=== PATIENT | male | born 1960 | race Caucasian/White ===

== ENCOUNTER → 2016-05-26 | Outpatient (CLI) | payer MEDICARE, OTHER ==
[2016-05-26 19:51] LABS: Hemoglobin A1C 5.2 % (4.2-6.1)
== END | disposition home or self-care (01) ==
LOC: LABWHC1 16:31
PROVIDERS: ATTEND Psychiatry & Neurology Psychiatry
DX: T50.905A Adverse effect of unspecified drugs, medicaments and biological substances, initial encounter (principal)
CPT/HCPCS: 36415; 83036

== ENCOUNTER → 2016-11-30 | Outpatient (CLI) | payer MEDICARE, OTHER ==
[2016-11-30 13:02] LABS: Bilirubin, Delta 0.3 mg/dL (0.0-0.2); Total Bilirubin 0.6 mg/dL (0.2-1.3); Total Protein 7.1 g/dL (6.3-8.2)
[2016-11-30 18:45] LABS: Hemoglobin A1C 5.5 % (4.2-6.1)
== END ==
LOC: LABWHC1 12:14
PROVIDERS: ATTEND Psychiatry & Neurology Psychiatry
DX: T50.905A Adverse effect of unspecified drugs, medicaments and biological substances, initial encounter (principal)
CPT/HCPCS: 36415; 80076; 83036

== ENCOUNTER → 2017-05-01 | Outpatient (CLI) | payer MEDICARE, OTHER ==
[2017-05-01 16:06] LABS: Basophils # (A) 0.1 k/uL (0-0.2); Basophils % (A) 1 %; Eosinophils # (A) 0.1 k/uL (0-0.7); Eosinophils % (A) 2 %; HCT 53.7 % (39.0-53.0); HGB 17.4 gm/dL (13.0-17.5); Lymphocytes # (A) 1.5 k/uL (1.0-4.8); Lymphocytes % (A) 20 %; MCH 29.5 pg (25.0-35.0); MCHC 32.3 g/dL (31.0-37.0); MCV 91.3 fL (80.0-100.0); Mean Platelet Volume 6.8; Monocytes # (A) 0.3 k/uL (0-1.0); Monocytes % (A) 3 %; Neutrophils # (A) 5.7 k/uL (1.3-7.7); Neutrophils % (A) 74 %; Platelet Count 259 k/uL (150-450); RBC 5.88 m/uL (4.30-5.90); RDW 13.8 % (11.5-15.5); WBC 7.7 k/uL (3.8-10.6)
[2017-05-01 16:07] LABS: ALT 67 U/L (21-72); AST 30 U/L (17-59); Albumin 4.5 g/dL (3.5-5.0); Alkaline Phosphatase 123 U/L (38-126); Anion Gap 11 mmol/L; Blood Urea Nitrogen 18 mg/dL (9-20); Calcium 9.4 mg/dL (8.4-10.2); Carbon Dioxide 28 mmol/L (22-30); Chloride 103 mmol/L (98-107); Cholesterol 172 mg/dL (<200); Glucose 92 mg/dL (74-99); HDL Cholesterol 38 mg/dL (40-60); LDL Cholesterol,Calculated 114 mg/dL (0-99); Potassium 4.7 mmol/L (3.5-5.1); Sodium 142 mmol/L (137-145); Total Bilirubin 0.6 mg/dL (0.2-1.3); Total Protein 7.6 g/dL (6.3-8.2); Triglycerides 102 mg/dL (<150)
== END | disposition home or self-care (01) ==
LOC: LABWHC1 15:15
PROVIDERS: ATTEND Nurse Practitioner
DX: F33.41 Major depressive disorder, recurrent, in partial remission (principal); Z79.899 Other long term (current) drug therapy
CPT/HCPCS: 36415; 80053; 80061; 85025

== ENCOUNTER → 2017-10-13 | Outpatient (CLI) | payer MEDICARE, OTHER ==
[2017-10-13 12:31] LABS: Basophils % (A) 1 %; Eosinophils # (A) 0.1 k/uL (0-0.7); Eosinophils % (A) 2 %; HCT 53.9 % (39.0-53.0); HGB 18.1 gm/dL (13.0-17.5); Lymphocytes # (A) 1.7 k/uL (1.0-4.8); Lymphocytes % (A) 25 %; MCH 30.6 pg (25.0-35.0); MCHC 33.5 g/dL (31.0-37.0); MCV 91.3 fL (80.0-100.0); Mean Platelet Volume 6.2; Monocytes # (A) 0.3 k/uL (0-1.0); Monocytes % (A) 4 %; Neutrophils # (A) 4.6 k/uL (1.3-7.7); Neutrophils % (A) 67 %; Platelet Count 208 k/uL (150-450); RBC 5.91 m/uL (4.30-5.90); RDW 13.7 % (11.5-15.5); WBC 6.8 k/uL (3.8-10.6)
[2017-10-13 12:45] LABS: Albumin 4.4 g/dL (3.5-5.0); Calcium 9.5 mg/dL (8.4-10.2); Potassium 4.4 mmol/L (3.5-5.1); Total Bilirubin 0.7 mg/dL (0.2-1.3); Total Protein 7.1 g/dL (6.3-8.2)
[2017-10-13 18:23] LABS: Hemoglobin A1C 5.3 % (4.0-6.0)
== END | disposition home or self-care (01) ==
LOC: LABWHC1 11:50
PROVIDERS: ATTEND Nurse Practitioner
DX: F33.41 Major depressive disorder, recurrent, in partial remission (principal); Z79.899 Other long term (current) drug therapy
CPT/HCPCS: 36415; 80053; 80061; 83036; 85025

== ENCOUNTER 2018-11-07 15:36 | Emergency (ER) | payer MEDICARE, OTHER ==
[2018-11-07] MEDS ORDERED: KETOROLAC 30 MG/ML 1 ML VIAL IVP STA (16:38)
[2018-11-07] MEDS ORDERED: SODIUM CHLORIDE 0.9% 1,000 ML IV STA ×2 (16:38→20:49)
--- NOTE | 2018-11-07 17:05 | ED ---
General Adult HPI - General Chief complaint: Abdominal Pain Stated complaint: abd pain Time Seen by Provider: 11/07/18 16:21 Source: patient, RN notes reviewed Mode of arrival: ambulatory Limitations: no limitations - History of Present Illness Initial comments: 58-year-old male with intellectual disability presents to the emergency department for a chief complaint of abdominal pain. Patient presents with guardian and history is obtained both from guardian and patient. Patient has had diffuse abdominal pain for 3 days. Guardian states patient began vomiting this morning. Denies any chest pain or shortness of breath. Denies diarrhea, states bowel movements have been normal. Denies vomiting blood or any blood in stool. Denies any past medical history.Patient has no other complaints at this time including shortness of breath, chest pain, headache, or visual changes. - Related Data Home Medications Medication Instructions Recorded Confirmed ARIPiprazole [Abilify] 10 mg PO DAILY 11/07/18 11/07/18 Sertraline HCl [Zoloft] 100 mg PO DAILY 11/07/18 11/07/18 buPROPion XL [Wellbutrin Xl] 300 mg PO DAILY 11/07/18 11/07/18 Allergies Allergy/AdvReac Type Severity Reaction Status Date / Time No Known Allergies Allergy Verified 11/07/18 19:48 Review of Systems ROS Statement: Those systems with pertinent positive or pertinent negative responses have been documented in the HPI. ROS Other: All systems not noted in ROS Statement are negative. Past Medical History Additional Past Medical History / Comment(s): "mentally handicapped" per guardian History of Any Multi-Drug Resistant Organisms: None Reported Past Surgical History: No Surgical Hx Reported Past Psychological History: No Psychological Hx Reported Smoking Status: Never smoker Past Alcohol Use History: None Reported Past Drug Use History: None Reported General Exam Limitations: no limitations General appearance: alert, in no apparent distress Head exam: Present: atraumatic, normocephalic, normal inspection Eye exam: Present: normal appearance, PERRL, EOMI. Absent: scleral icterus, conjunctival injection, periorbital swelling ENT exam: Present: normal exam, mucous membranes moist Neck exam: Present: normal inspection, full ROM. Absent: tenderness, meningismus, lymphadenopathy Respiratory exam: Present: normal lung sounds bilaterally. Absent: respiratory distress, wheezes, rales, rhonchi, stridor Cardiovascular Exam: Present: regular rate, normal rhythm, normal heart sounds. Absent: systolic murmur, diastolic murmur, rubs, gallop, clicks GI/Abdominal exam: Present: soft, tenderness (Tenderness of the abdomen. Mild guarding in the lower abdomen.), normal bowel sounds. Absent: distended, guarding, rebound, rigid Neurological exam: Present: alert, oriented X3, CN II-XII intact Psychiatric exam: Present: normal affect, normal mood Course Vital Signs 11/07/18 11/07/18 11/07/18 16:11 17:51 19:00 Temperature 97.6 F Pulse Rate 111 H 97 107 H Respiratory 20 20 16 Rate Blood Pressure 127/87 124/104 134/90 O2 Sat by Pulse 94 L 94 L 93 L Oximetry Medical Decision Making - Medical Decision Making Boni is a 58-year-old male with intellectual disability presenting to the emergency department for abdominal pain. Patient has had pain for 3 days and today began vomiting. Denies diarrhea, states bowel movements have been normal. Denies hematochezia or melena. Patient initially tachycardic at 111, given a liter of fluids. This did improve somewhat to 97. Blood pressure is stable. While patient is complaining of pain more so in the upper abdomen, exam does reveal a generalized tenderness with mild voluntary guarding. CBC does show a white count of 17.3 which is elevated above his baseline. CMP is unremarkable. Urine does not show any significant evidence of infection. CT abdomen and pelvis was obtained which shows significant edema and wall thickening of the long segment of the proximal jejunum with small bowel mesenteric edema and adenopathy. More likely related to inflammatory process. However portal vein is dilated to 2.2 cm and there is evidence of portal vein thrombosis. Dr Emery spoke with Dr Castillo who recommends transfer given evidence of portal vein thrombosis. Patient was started on heparin and Zosyn. Discussed this with Dr. Rosario who accepts transfer. - Lab Data Result diagrams: 11/07/18 17:12 11/07/18 17:12 Lab Results 11/07/18 11/07/18 11/07/18 Range/Units 17:12 17:12 17:12 WBC 17.3 H (3.8-10.6) k/uL RBC 5.65 (4.30-5.90) m/uL Hgb 16.4 (13.0-17.5) gm/dL Hct 48.6 (39.0-53.0) % MCV 85.9 (80.0-100.0) fL MCH 29.1 (25.0-35.0) pg MCHC 33.8 (31.0-37.0) g/dL RDW 13.0 (11.5-15.5) % Plt Count 217 (150-450) k/uL Neutrophils % 92 % Lymphocytes % 3 % Monocytes % 4 % Eosinophils % 0 % Basophils % 0 % Neutrophils # 15.9 H (1.3-7.7) k/uL Lymphocytes # 0.6 L (1.0-4.8) k/uL Monocytes # 0.7 (0-1.0) k/uL Eosinophils # 0.0 (0-0.7) k/uL Basophils # 0.0 (0-0.2) k/uL Sodium 143 (137-145) mmol/L Potassium 4.7 (3.5-5.1) mmol/L Chloride 109 H (98-107) mmol/L Carbon Dioxide 22 (22-30) mmol/L Anion Gap 12 mmol/L BUN 31 H (9-20) mg/dL Creatinine 1.24 (0.66-1.25) mg/dL Est GFR (CKD-EPI)AfAm 74 (>60 ml/min/1.73 sqM) Est GFR (CKD-EPI)NonAf 64 (>60 ml/min/1.73 sqM) Glucose 176 H (74-99) mg/dL Plasma Lactic Acid Josef 1.8 (0.7-2.0) mmol/L Calcium 9.6 (8.4-10.2) mg/dL Total Bilirubin 1.1 (0.2-1.3) mg/dL AST 35 (17-59) U/L ALT 34 (21-72) U/L Alkaline Phosphatase 143 H (38-126) U/L Troponin I (0.000-0.034) ng/mL Total Protein 7.3 (6.3-8.2) g/dL Albumin 4.4 (3.5-5.0) g/dL Amylase 45 (30-110) U/L Lipase 77 (23-300) U/L Urine Color Urine Appearance (Clear) Urine pH (5.0-8.0) Ur Specific [place] (1.001-1.035) Urine Protein (Negative) Urine Glucose (UA) (Negative) Urine Ketones (Negative) Urine Blood (Negative) Urine Nitrite (Negative) Urine Bilirubin (Negative) Urine Urobilinogen (<2.0) mg/dL Ur Leukocyte Esterase (Negative) Urine RBC (0-5) /hpf Urine WBC (0-5) /hpf Urine Mucus (None) /hpf 11/07/18 11/07/18 Range/Units 17:12 17:12 WBC (3.8-10.6) k/uL RBC (4.30-5.90) m/uL Hgb (13.0-17.5) gm/dL Hct (39.0-53.0) % MCV (80.0-100.0) fL MCH (25.0-35.0) pg MCHC (31.0-37.0) g/dL RDW (11.5-15.5) % Plt Count (150-450) k/uL Neutrophils % % Lymphocytes % % Monocytes % % Eosinophils % % Basophils % % Neutrophils # (1.3-7.7) k/uL Lymphocytes # (1.0-4.8) k/uL Monocytes # (0-1.0) k/uL Eosinophils # (0-0.7) k/uL Basophils # (0-0.2) k/uL Sodium (137-145) mmol/L Potassium (3.5-5.1) mmol/L Chloride (98-107) mmol/L Carbon Dioxide (22-30) mmol/L Anion Gap mmol/L BUN (9-20) mg/dL Creatinine (0.66-1.25) mg/dL Est GFR (CKD-EPI)AfAm (>60 ml/min/1.73 sqM) Est GFR (CKD-EPI)NonAf (>60 ml/min/1.73 sqM) Glucose (74-99) mg/dL Plasma Lactic Acid Josef (0.7-2.0) mmol/L Calcium (8.4-10.2) mg/dL Total Bilirubin (0.2-1.3) mg/dL AST (17-59) U/L ALT (21-72) U/L Alkaline Phosphatase (38-126) U/L Troponin I <0.012 (0.000-0.034) ng/mL Total Protein (6.3-8.2) g/dL Albumin (3.5-5.0) g/dL Amylase (30-110) U/L Lipase (23-300) U/L Urine Color Yellow Urine Appearance Clear (Clear) Urine pH 5.5 (5.0-8.0) Ur Specific [place] 1.032 (1.001-1.035) Urine Protein 1+ H (Negative) Urine Glucose (UA) Negative (Negative) Urine Ketones Trace H (Negative) Urine Blood Small H (Negative) Urine Nitrite Negative (Negative) Urine Bilirubin Negative (Negative) Urine Urobilinogen <2.0 (<2.0) mg/dL Ur Leukocyte Esterase Negative (Negative) Urine RBC <1 (0-5) /hpf Urine WBC 1 (0-5) /hpf Urine Mucus Occasional H (None) /hpf Disposition Clinical Impression: Leukocytosis, Portal vein thrombosis, Pancreatic atrophy, Jejunal inflammation Disposition: OTHER INSTITUTION NOT DEFINED Condition: Good Is patient prescribed a controlled substance at d/c from ED?: No Referrals: Allison Anne MD [Primary Care Provider] - 1-2 days Time of Disposition: 20:49 - Out of Hospital Transfer - Req. Specs Out of Hospital Transfer - Requested Specifics: Other Emergency Center ([facility])
[2018-11-07 17:26] LABS: Basophils % (A) 0 %; Eosinophils % (A) 0 %; HCT 48.6 % (39.0-53.0); HGB 16.4 gm/dL (13.0-17.5); Lymphocytes # (A) 0.6 k/uL (1.0-4.8); Lymphocytes % (A) 3 %; MCH 29.1 pg (25.0-35.0); MCHC 33.8 g/dL (31.0-37.0); MCV 85.9 fL (80.0-100.0); Mean Platelet Volume 6.6; Monocytes # (A) 0.7 k/uL (0-1.0); Monocytes % (A) 4 %; Neutrophils # (A) 15.9 k/uL (1.3-7.7); Neutrophils % (A) 92 %; Platelet Count 217 k/uL (150-450); RBC 5.65 m/uL (4.30-5.90); WBC 17.3 k/uL (3.8-10.6)
[2018-11-07 17:27] LABS: Appearance,Urine Clear (Clear); Bilirubin,Urine Negative (Negative); Blood,Urine Small (Negative); Color,Urine Yellow; Glucose,Urine (UA) Negative (Negative); Ketones,Urine Trace (Negative); Leukocyte Esterase,Urine Negative (Negative); Mucus,Urine Occasional /hpf; Nitrite,Urine Negative (Negative); PH, Urine 5.5 (5.0-8.0); Protein,Urine 1+ (Negative); RBC,Urine <1 /hpf (0-5); Specific Gravity,Urine 1.032 (1.001-1.035); Urobilinogen,Urine <2.0 mg/dL (<2.0); WBC,Urine 1 /hpf (0-5)
[2018-11-07 17:42] LABS: Albumin 4.4 g/dL (3.5-5.0); Calcium 9.6 mg/dL (8.4-10.2); Potassium 4.7 mmol/L (3.5-5.1); Total Bilirubin 1.1 mg/dL (0.2-1.3); Total Protein 7.3 g/dL (6.3-8.2)
--- NOTE | 2018-11-07 18:45 | CT ---
EXAMINATION TYPE: CT abdomen pelvis w con DATE OF EXAM: 11/07/2018 COMPARISON: None HISTORY: Abdominal pain and vomiting x3 days CT DLP: 1264.9 mGycm Automated exposure control for dose reduction was used. TECHNIQUE: Helical acquisition of images was performed from the lung bases through the pelvis. CONTRAST: Performed without Oral Contrast and with IV Contrast, patient injected with 100 mL of Isovue 300. FINDINGS: There is subsegmental atelectasis at the posterior lung bases. Spleen is intact. There is low density within the portal vein suggestive of thrombus. Portal vein is dilated and measures 2.[address] appears normal. Bile ducts are not dilated. There is hiatal hernia that contains fat. There is barger creatic atrophy involving the tail of the pancreas with some dilation of the pancreatic duct. Pancrea tic head appears intact. There is significant wall thickening of the proximal jejunum. There is mesenteric edema involving the proximal small bowel. There is no adrenal mass. Kidneys show satisfactory contrast opacification. There is no hydronephrosi s. Bladder distends smoothly. There is small amount of fluid in the pelvis. There is no inguinal ted ia. There is no evidence of thickened appendix. There is some facet arthropathy at L5-S1. There is L5 -S1 disc space narrowing. There is no focal bony destructive process. IMPRESSION: THERE IS SIGNIFICANT EDEMA AND WALL THICKENING OF LONG SEGMENT OF PROXIMAL JEJUNUM WITH SMALL BOWEL M ESENTERIC EDEMA AND ADENOPATHY. THIS IS MORE LIKELY RELATED TO INFLAMMATORY PROCESS. THERE IS EVIDENC E OF PORTAL VEIN THROMBOSIS. DILATED PORTAL VEIN. CHANGES IN THE PANCREAS CONSISTENT WITH ATROPHY AND CHRONIC PANCREATITIS.
[2018-11-07] MEDS ORDERED: MORPHINE SULFATE 4 MG/ML SYRINGE IVP STA (19:10)
[2018-11-07 19:23] VITALS: BP 134/90
[2018-11-07] MEDS ORDERED: HEPARIN SODIUM,PORCINE 5,000 UNIT/ML 1 ML VIAL IV PRN (20:16)
[2018-11-07] MEDS ORDERED: HEPARIN SODIUM,PORCINE 10,000 UNIT/ML 1 ML VIAL IV ONE (20:16)
[2018-11-07] MEDS ORDERED: PIPERACILLIN-TAZOBACTAM 3.375 GM in SODIUM CHLORIDE 0.9% 100 ML IVPB STA (20:17)
[2018-11-07] MEDS ORDERED: HEPARIN SOD,PORK IN 0.45% NACL 25,000 UNIT in 0.45% NACL 1 250ML.BAG IV SCH (20:30)
[2018-11-07 21:57] VITALS: RESP 18
[2018-11-07 22:11] VITALS: PULSE 112; TEMP 100
== END 2018-11-07 22:05 | disposition other institution (70) ==
LOC: EC 15:36 → EEVIPCON 15:36 → EC 22:05
DX: I81 Portal vein thrombosis (principal); K86.89 Other specified diseases of pancreas; K52.9 Noninfective gastroenteritis and colitis, unspecified; D72.829 Elevated white blood cell count, unspecified; R00.0 Tachycardia, unspecified; R59.0 Localized enlarged lymph nodes; Z79.899 Other long term (current) drug therapy
CPT/HCPCS: 36415; 93005; 80053; 82150; 83605; 83690; 84484; 85025; 81001; 74177; 99285; 96365; 96368; 96375 ×2; 96376; 96361; J2543; J2270; J1644 ×2; J1885; Q9967

== ENCOUNTER → 2018-12-27 | Outpatient (CLI) | payer MEDICARE, OTHER ==
--- NOTE | 2018-12-30 06:44 | PE ---
EXAMINATION TYPE: PET CT fusion skull to thigh DATE OF EXAM: 12/27/2018 COMPARISON: CT abdomen and pelvis November 07, 2018 HISTORY: Pancreatic cancer initial staging study diagnosed on biopsy December 12 TECHNIQUE: Following the intravenous administration of 13.68 mCi of F-18 FDG, whole body images are performed from the skull base to the midthigh. Images are reviewed on the computer in the coronal, a xial, and sagittal planes. Reconstructed rotating images are created on independent workstation and reviewed on the computer. A noncontrast CT is performed in conjunction with the PET scan. SCAN: Initial Scan FINDINGS: SKULL BASE AND NECK: No areas of suspicious hypermetabolic uptake. CHEST, MEDIASTINUM, AND HILAR REGION: No areas of suspicious hypermetabolic uptake ABDOMEN AND PELVIS: Minimal hypermetabolic uptake in the mid to distal body at area of bulkiness posi tive for neoplasm axial image 147 causing distal ductal dilatation. SUV is 2.31. Focus of hypermetabolic uptake right upper pelvis axial image [address] correlate presumed along course of right ureter. No additional areas of suspicious hypermetabolic uptake. OSSEOUS STRUCTURES: No areas of suspicious hypermetabolic uptake. OTHER CT: Slightly elevated left hemidiaphragm. Redemonstration of splenomegaly measuring 15.5 cm long axis axial image 141. Prominent splenule 70 sp lenic hilum redemonstrated. Scattered subcentimeter lymph nodes throughout the mesentery redemonstrat ed. Soft tissue nodularity in the anterior abdominal wall is present near axial image 200 perhaps pro duct of subcutaneous injections as there are additional smaller areas of nodularity and fat stranding bilaterally noted. Slightly enlarged prostate gland consistent with BPH. Moderate to large sized fat -containing left inguinal hernia. Multilevel spurring in the spine. Facet arthropathy lower lumbar levels. IMPRESSION: No convincing PET CT evidence for metastatic malignancy. Patient suspected surgical devon date.
== END | disposition home or self-care (01) ==
LOC: RADPETMAIN 17:04
PROVIDERS: ATTEND Internal Medicine Hematology & Oncology
DX: C25.1 Malignant neoplasm of body of pancreas (principal); C25.3 Malignant neoplasm of pancreatic duct; K86.81 Exocrine pancreatic insufficiency
CPT/HCPCS: 78815; A9552

== ENCOUNTER 2019-03-14 07:59 | Day surgery (SDC) | payer MEDICARE, OTHER ==
[2019-03-11 10:30] VITALS: BMI 23.0
[~2019-03-14 07:59] MED LIST: DEXAMETHASONE SOD PHOSPHATE 10 MG/ML 1 ML VIAL IV ONE; HEPARIN SODIUM,PORCINE 5,000 UNIT/ML 1 ML VIAL SQ ONE; HYDROmorphone 0.5 MG/0.5 ML SYRINGE IVP PRN; LACTATED RINGERS 1,000 ML IV SCH; LIDOCAINE 1% 20 ML VIAL (10MG/ML) FOR IV START INTRADERMA PRN; ONDANSETRON 4 MG/2 ML VIAL IVP ONE; Pre Op ABX Message 1 EACH MISC MISCELLANE ONE; fentaNYL (PF) 50 MCG/ML 2 ML AMP IV PRN
--- NOTE | 2019-03-14 08:45 | P.GSHP ---
History of Present Illness H&P Date: 03/14/19 Chief Complaint: Pancreatic cancer This is a 58-year-old male who was previously diagnosed hepatic cancer. Patient resents today for Port-A-Cath insertion Past Medical History Past Medical History: Cancer Additional Past Medical History / Comment(s): pancreatic cancer, "blood clot around liver area". balance issues History of Any Multi-Drug Resistant Organisms: None Reported Past Surgical History: No Surgical Hx Reported Additional Past Surgical History / Comment(s): surgery for pancreatic cancer Past Anesthesia/Blood Transfusion Reactions: No Reported Reaction Past Psychological History: No Psychological Hx Reported Additional Psychological History / Comment(s): "mentally handicapped" per guardian Smoking Status: Never smoker Past Alcohol Use History: None Reported Past Drug Use History: None Reported - Past Family History Mother Family Medical History: Cancer Additional Family Medical History / Comment(s): pancreatic cancer Brother(s) Family Medical History: Diabetes Mellitus Medications and Allergies Home Medications Medication Instructions Recorded Confirmed Type ARIPiprazole [Abilify] 5 mg PO DAILY 11/07/18 03/11/19 History Sertraline HCl [Zoloft] 100 mg PO DAILY 11/07/18 03/11/19 History buPROPion XL [Wellbutrin Xl] 300 mg PO DAILY 11/07/18 03/11/19 History Aspirin 325 mg PO DAILY 03/11/19 03/11/19 History HYDROcodone/APAP [[place] Elixir 15 ml PO Q4HR PRN 03/11/19 03/11/19 History 7.5-325Mg/15Ml] Lovenox (Unknown Dose) 1 dose INJ BID 03/11/19 03/11/19 History Allergies Allergy/AdvReac Type Severity Reaction Status Date / Time No Known Allergies Allergy Verified 03/11/19 10:14 Surgical - Exam Vital Signs Temp Pulse Resp BP Pulse Ox 97.8 F 97 20 131/86 98 03/14/19 08:27 03/14/19 08:27 03/14/19 08:27 03/14/19 08:27 03/14/19 08:27 - General well developed, well nourished, no distress - Eyes PERRL - ENT normal pinna - Neck no masses - Respiratory normal expansion - Cardiovascular Rhythm: regular - Abdomen Abdomen: soft, non tender Assessment and Plan Assessment: History of pancreas cancer. We'll perform Port-A-Cath insertion.
--- NOTE | 2019-03-14 08:54 | P.OP ---
Date of Procedure: 03/14/19 Preoperative Diagnosis: History of colon cancer Postoperative Diagnosis: No evidence of recurrent colon cancer Procedure(s) Performed: Colonoscopy Anesthesia: MAC Surgeon: Jake May Pathology: none sent Condition: stable Disposition: PACU Description of Procedure: The patient's placed on the endoscopy table in the lateral position. She received IV sedation. Digital rectal exam performed which revealed no abnormalities. The patient's rectal stump was quite short. The staple line could be felt with the examining finger. This point the colonoscope was placed patient anus and the rectal stump was evaluated. There is no evidence of any inflammation or colonic tumors of the rectal stump. This point the patient rotated on her back. Digital exam of the colostomy in the left lower quadrants performed. There is known to any stricture. The colonoscope was then placed patient anus passed throughout the entire colon. The ileocecal valve was visualized. The cecum, ascending and transverse colon appeared normal. The remaining descending colon appeared normal. Copious then withdrawn for patient.
[2019-03-14 09:00] LABS: Glucose,Whole Blood 124 mg/dL (75-99)
[2019-03-14] MEDS ORDERED: diphenhydrAMINE 50 MG/ML 1 ML VIAL ONE (09:05)
[2019-03-14] MEDS ORDERED: PROPOFOL 10 MG/ML 20 ML VIAL IV ONE (09:05)
[2019-03-14] MEDS ORDERED: LIDOCAINE 1% INJ 10MG/ML (20 ML MDV) ONE (09:05)
[2019-03-14] MEDS ORDERED: fentaNYL (PF) 50 MCG/ML 2 ML AMP ONE (09:05)
[2019-03-14] MEDS ORDERED: MIDAZOLAM 2 MG/2 ML VIAL ONE (09:05)
[2019-03-14] MEDS ORDERED: IOHEXOL 180 MG/ML 1 ML ML INJ ONE ×2 (09:31)
[2019-03-14] MEDS ORDERED: LIDOCAINE 1%-EPI 1:100,000 20 ML VIAL SQ ONE (09:31)
[2019-03-14] MEDS ORDERED: HEPARIN SODIUM,PORCINE 100 UNIT/ML 5 ML VIAL IV ONE (09:31)
[2019-03-14] MEDS ORDERED: IOPAMIDOL-370 50ML BTL INJ ONE (09:31)
--- NOTE | 2019-03-14 09:58 | P.OP ---
Date of Procedure: 03/14/19 Preoperative Diagnosis: Pancreatic cancer Postoperative Diagnosis: Pancreatic cancer Procedure(s) Performed: Insertion of right subclavian Port-A-Cath Anesthesia: MAC Surgeon: Jake May Pathology: none sent Condition: stable Disposition: PACU Description of Procedure: MPROCEDURE: The patient was placed on the operating table in the supine position. She received MAC anesthetic. The [right] chest was prepped and draped in the usual sterile fashion. The skin underneath the right clavicle was anesthetized with 1% Xylocaine and using Seldinger technique, the right subclavian vein was cannulized. The wire was placed through the needle and positioned under fluoroscopy. Next, the needle was removed and the port site was anesthetized with 1% Xylocaine. Skin was incised with #15 blade and port pocket was made using blunt and sharp dissection. Following this the catheter was attached to the sport and the port was flushed. The port was positioned into the pocket site and was secured with 3-0 Vicryl suture. The catheter was then brought out through the wire site and then the dilator sheath was placed over the wire and the dilator and the wire were removed. The catheter was placed through the sheath and the sheath was removed. The port was flushed with hep-lock solution. Skin was closed with interrupted 3-0 Vicryl sutures. Steri-Strips were applied. The patient tolerated the procedure well. The patient was sent to recovery room for chest x-ray after the procedure.
--- NOTE | 2019-03-14 09:58 | FL ---
Fluoroscopy History: port a cath insertion port cath insertion, 17sec fl time
[2019-03-14 10:07] VITALS: TEMP 97.9
[2019-03-14 10:13] VITALS: RESP 16
--- NOTE | 2019-03-14 10:37 | XR ---
EXAMINATION TYPE: XR chest 1V confirm line [facility] DATE OF EXAM: 03/14/2019 HISTORY: Shortness of breath. COMPARISON: None. TECHNIQUE: Single view of the chest is submitted. FINDINGS: Demonstrated are scattered senescent parenchymal change. Right-sided Port-A-Cath demonstrates its distal tip overlying the SVC. No evidence for pneumothorax. There is no evidence for focal infiltrate. The heart is stable. Hilar and mediastinal structures are within normal limits. Degenerative changes are seen of the dorsal spine. IMPRESSION: 1. Right-sided Port-A-Cath demonstrates its distal tip overlying the SVC. No evidence for pneumothor ax.
[2019-03-14] MEDS ORDERED: HYDROcodone/APAP 15 ML SOLUTION PO ONE (11:06)
[2019-03-14 11:07] VITALS: PULSE 102
[2019-03-14 11:36] VITALS: BP 128/82
== END 2019-03-14 11:53 | disposition home or self-care (01) ==
LOC: OR 07:59
PROVIDERS: ATTEND Surgery
DX: C25.9 Malignant neoplasm of pancreas, unspecified (principal); Z80.9 Family history of malignant neoplasm, unspecified; Z83.3 Family history of diabetes mellitus; F79 Unspecified intellectual disabilities; Z79.01 Long term (current) use of anticoagulants; Z79.82 Long term (current) use of aspirin; Z79.899 Other long term (current) drug therapy; F39 Unspecified mood [affective] disorder
CPT/HCPCS: 77001; 36561; J2250; J1200; J1642; J1100; J0690; J2405; J2001; J3010; J2704